=== PATIENT | female | born 2005 | race Two or more races ===

== ENCOUNTER 2025-05-08 20:33 | Emergency (ER) | payer OTHER ==
[~2025-05-08] VITALS: Ht 157.5 cm; Wt 40.8 kg
[2025-05-08] MEDS ORDERED: PRENATAL + DHA1 EAC1 (21:18)
[2025-05-08] MEDS ORDERED: ONDANSETRON HCL 2 MG/ML VIAL IV ONE (22:15)
[2025-05-08] MEDS ORDERED: 0.9 % SODIUM CHLORIDE 500 ML IV SCH (22:15)
[2025-05-08] MEDS ORDERED: FAMOTIDINE/PF 20 MG/2 ML VIAL IV ONE (22:15)
[2025-05-08] MEDS ORDERED: DEXAMETHASONE SODIUM PHOSPHATE 4 MG/ML VIAL IV ONE (22:15)
[2025-05-08] MEDS ORDERED: KETOROLAC TROMETHAMINE 30 MG VIAL IV ONE (22:15)
[2025-05-08] MEDS ORDERED: 0.9 % SODIUM CHLORIDE 500 ML IV ONE (22:15)
[2025-05-08] MEDS ORDERED: FAMOTIDINE/PF 20 MG/2 ML VIAL ONE (23:20)
[2025-05-08] MEDS ORDERED: KETOROLAC TROMETHAMINE 30 MG VIAL ONE (23:20)
[2025-05-08] MEDS ORDERED: ONDANSETRON HCL 2 MG/ML VIAL ONE (23:20)
[2025-05-08] MEDS ORDERED: DEXAMETHASONE SODIUM PHOSPHATE 4 MG/ML VIAL ONE (23:20)
[2025-05-09 00:34] LABS: BASO % 0.3 % (0.1-1.2); EOS # 0.05 (0.04-0.54); EOS % 0.4 % (0.7-7.0); LYMPH # 2.15 (1.18-3.74); LYMPH % 17.4 % (19.3-53.1); MEAN PLATELET VOLUME 9.80 fl (9.4-12.4); MONO # 0.69 (0.24-0.82); MONO % 5.6 % (4.7-12.5); NEUT # 9.42 (1.56-6.13); NEUT % 76.1 % (34.0-71.1); RED CELL DISTRIBUTION WIDTH 14.3 % (11.6-14.4)
[2025-05-09 00:51] LABS: ERYTHROCYTE SEDIMENTATION RATE 28 mm/hr (0-20)
[2025-05-09 01:03] LABS: INR 0.97
[2025-05-09 01:16] LABS: ALT/SGPT 21 U/L (12-78); AST/SGOT 17 U/L (15-37); BILIRUBIN TOTAL 0.14 mg/dL (0.3-1.2); BUN CREA RATIO 20 (7.0-25.0); CREATININE SERUM 0.66 mg/dL (0.55-1.02); GFR 114.18; GLOBULINA 3.8 G/DL (2.4-3.5); GLUCOSE FASTING 88 mg/dL (65-100); HCG QUANTITATIVE < 1 mUI/mL (1-3); OSMOLALITY SERUM 279 MOSM/KG (275-295)
[2025-05-09 01:52] LABS: URINE APPEARANCE Clear; URINE BILIRRUBIN Negative (NEGATIVE); URINE BLOOD Moderate; URINE COLOR Yellow; URINE GLUCOSE Negative (NEGATIVE); URINE KETONE Trace (NEGATIVE); URINE LEUKOCYTE Negative; URINE NITRATE Negative; URINE PROTEIN Negative (NEGATIVE); URINE UROBILINOGEN 0.2 E.U./dl
[2025-05-09 01:55] LABS: URINE EPITHELIAL CELLS 28.4 uL (0.0-38.8); URINE RBC 4.1 uL (0.0-20.8); URINE WBC 33.8 uL (0.0-23.2)
[2025-05-09 02:09] LABS: URINE CAST 0.29 uL (0.0-1.40)
[2025-05-09] MEDS ORDERED: KETO10TA2 PO (04:05)
== END 2025-05-09 05:00 ==
LOC: EMR PED 20:34 → ER 20:34 → EMR PED 21:47
DX: R10.21 Pelvic and perineal pain right side (principal); N80.8 Other endometriosis; N93.8 Other specified abnormal uterine and vaginal bleeding